=== PATIENT | male | born 1950 | race Caucasian/White ===

== ENCOUNTER 2020-09-21 06:12 | Emergency (ER) | payer OTHER, BC | END 2020-09-21 09:03 | disposition home or self-care (01) | LOC: ER1 06:12 | DX: S20.223A Contusion of bilateral back wall of thorax, initial encounter (principal); S50.812A Abrasion of left forearm, initial encounter; S00.81XA Abrasion of other part of head, initial encounter; R07.89 Other chest pain; V49.40XA Driver injured in collision with unspecified motor vehicles in traffic accident, initial encounter; I10 Essential (primary) hypertension; Z79.899 Other long term (current) drug therapy; Y92.410 Unspecified street and highway as the place of occurrence of the external cause; Z23 Encounter for immunization | CPT/HCPCS: 70450; 71250; 72125; 73090; 73130; 90471; 90715; 99284 ==